=== PATIENT | female | born 1975 | race African-American/Black ===

== ENCOUNTER 2017-07-23 21:05 | Emergency (ER) | payer BC ==
[~2017-07-23] VITALS: Ht 147.3 cm; Wt 117.9 kg
[2017-07-23] MEDS ORDERED: NITROGLYCERIN SUBLINGUAL 0.4 MG BOTTLE OF 25. SL PRN (21:45)
[2017-07-23 21:48] LABS: BASO % 1 % (0-3); EOS % 6 % (0-3); HEMATOCRIT 36.7 % (36.0-47.0); HEMOGLOBIN 11.9 g/dL (12.0-15.5); LYMPH # 2.6 x10^3/uL (1.0-4.8); LYMPH % 44 % (24-48); MEAN CORPUSCULAR HEMOGLOBIN 27 pg (25-35); MEAN CORPUSCULAR HGB CONC 32 g/dL (31-37); MEAN CORPUSCULAR VOLUME 83 fL (79-100); MONO % 7 % (0-9); NEUT % 43 % (31-73); PLATELET COUNT 186 x10^3/uL (140-400); RED BLOOD COUNT 4.44 x10^6/uL (3.50-5.40); RED CELL DISTRIBUTION WIDTH 14.7 % (11.5-14.5)
[2017-07-23 22:02] LABS: CALCIUM 8.9 mg/dL (8.5-10.1); GFR 73.6; POTASSIUM 3.7 mmol/L (3.5-5.1)
[2017-07-23 22:09] LABS: ALBUMIN 3.7 g/dL (3.4-5.0); ALBUMIN/GLOBULIN RATIO 1.2 (1.0-1.7); TOTAL BILIRUBIN 0.3 mg/dL (0.2-1.0); TOTAL PROTEIN 6.8 g/dL (6.4-8.2)
[2017-07-23] MEDS ORDERED: FAMOTIDINE 20 MG/2 ML VIAL IVP ONE (23:45)
[2017-07-24 01:00] VITALS: BP 111/56
--- NOTE | 2017-07-24 04:55 | PHYS DOC ---
Past Medical History Past Medical History: Fibromyalgia, Other Additional Past Medical Histor: gall stones, sjogrens disease, chronic pain, Past Surgical History: , Other Additional Past Surgical Histo: carpal tunnel Alcohol Use: None Drug Use: None Adult General Chief Complaint Chief Complaint: CHEST PAIN HPI HPI Patient is a 42 year old female who presents with left-sided chest wall pain worse with deep breathing and palpation and movement. Symptom onset was yesterday. Patient states she has recurrent chest pain and has had one episodes of costochondritis. 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 Patient denies dyspnea with exertion chest pain with exertion, nausea vomiting sweats. Denies leg pain swelling, no history of DVT or PE. Denies abdominal pain and discomfort. No fever chills, cough palpitations. No other acute symptoms or complaints.[] Review of Systems Review of Systems Review symptoms as per history of present illness. All other review symptoms are negative. All other systems were reviewed and found to be within normal limits, except as documented in this note. Current Medications Current Medications Current Medications Medications (Trade) Dose Ordered Sig/Cyndee Start Time Stop Time Status Last Admin Dose Admin Famotidine (Pepcid Vial) 20 mg 1X ONCE 07/23/17 23:45 07/23/17 23:46 DC 07/23/17 23:45 20 MG Nitroglycerin (Nitrostat) 0.4 mg PRN Q5MIN PRN 07/23/17 21:45 07/24/17 03:02 DC 07/23/17 22:18 0.4 MG Allergies Allergies Allergies Coded Allergies Type Severity Reaction Last Updated Verified Sulfa (Sulfonamide Antibiotics) Allergy Unknown 07/23/17 Yes adalimumab Allergy Unknown 07/23/17 Yes aspirin Allergy Unknown 07/23/17 Yes etanercept Allergy Unknown 07/23/17 Yes infliximab Allergy Unknown 07/23/17 Yes Physical Exam Physical Exam Constitutional: Well developed, well nourished, no acute distress, non-toxic appearance. [] HENT: Normocephalic, atraumatic, bilateral external ears normal, oropharynx moist, no oral exudates, nose normal. [] Eyes: PERRLA, EOMI, conjunctiva normal, no discharge. [] Neck: Normal range of motion, no tenderness, supple, no stridor. [] Cardiovascular:Heart rate regular rhythm, no murmur left-sided reproducible chest wall pain[] Lungs & Thorax: Bilateral breath sounds clear to auscultation [] Abdomen: Bowel sounds normal, soft, no tenderness, no masses, no pulsatile masses. [] Skin: Warm, dry, no erythema, no rash. [] Back: No tenderness, no CVA tenderness. [] Extremities: No tenderness, no cyanosis, no clubbing, ROM intact, no edema. [] Neurologic: Alert and oriented X 3, normal motor function, normal sensory function, no focal deficits noted. [] Psychologic: Affect normal, judgement normal, mood normal. [] Current Patient Data Vital Signs Vital Signs Date Time Temp Pulse Resp B/P (MAP) Pulse Ox O2 Delivery O2 Flow Rate FiO2 07/24/17 01:00 88 20 111/56 (74) 98 07/23/17 22:40 Room Air 07/23/17 21:41 97.9 97.9 Lab Values Laboratory Tests Test 07/23/17 21:30 07/24/17 00:39 White Blood Count 6.0 x10^3/uL (4.0-11.0) Red Blood Count 4.44 x10^6/uL (3.50-5.40) Hemoglobin 11.9 g/dL (12.0-15.5) L Hematocrit 36.7 % (36.0-47.0) Mean Corpuscular Volume 83 fL (79-100) Mean Corpuscular Hemoglobin 27 pg (25-35) Mean Corpuscular Hemoglobin Concent 32 g/dL (31-37) Red Cell Distribution Width 14.7 % (11.5-14.5) H Platelet Count 186 x10^3/uL (140-400) Neutrophils (%) (Auto) 43 % (31-73) Lymphocytes (%) (Auto) 44 % (24-48) Monocytes (%) (Auto) 7 % (0-9) Eosinophils (%) (Auto) 6 % (0-3) H Basophils (%) (Auto) 1 % (0-3) Neutrophils # (Auto) 2.6 x10^3uL (1.8-7.7) Lymphocytes # (Auto) 2.6 x10^3/uL (1.0-4.8) Monocytes # (Auto) 0.4 x10^3/uL (0.0-1.1) Eosinophils # (Auto) 0.4 x10^3/uL (0.0-0.7) Basophils # (Auto) 0.0 x10^3/uL (0.0-0.2) D-Dimer (Anita) < 0.27 ug/mlFEU Sodium Level 138 mmol/L (136-145) Potassium Level 3.7 mmol/L (3.5-5.1) Chloride Level 103 mmol/L (98-107) Carbon Dioxide Level 30 mmol/L (21-32) Anion Gap 5 (6-14) L Blood Urea Nitrogen 9 mg/dL (7-20) Creatinine 1.0 mg/dL (0.6-1.0) Estimated GFR (Cockcroft-Gault) 73.6 BUN/Creatinine Ratio 9 (6-20) Glucose Level 99 mg/dL (70-99) Calcium Level 8.9 mg/dL (8.5-10.1) Total Bilirubin 0.3 mg/dL (0.2-1.0) Aspartate Amino Transferase (AST) 21 U/L (15-37) Alanine Aminotransferase (ALT) 19 U/L (14-59) Alkaline Phosphatase 75 U/L (46-116) Troponin I Quantitative < 0.017 ng/mL (0.000-0.055) XI-Alv-C-Type Natriuretic Peptide 16 pg/mL (0-124) Total Protein 6.8 g/dL (6.4-8.2) Albumin 3.7 g/dL (3.4-5.0) Albumin/Globulin Ratio 1.2 (1.0-1.7) POC Troponin I 0.01 ng/ml (<0.08) Laboratory Tests 07/23/17 21:30 Laboratory Tests 07/23/17 21:30 EKG EKG [EKG: Normal sinus rhythm, no acute ST-T wave changes, QTC normal. Interpretation by ED physician.] Radiology/Procedures Radiology/Procedures [Chest XR: NAD] Course & Med Decision Making Course & Med Decision Making Pertinent Labs and Imaging studies reviewed. (See chart for details) [Pain resolved. Repeat trop negative despite constant chest pain greater than 12 hours, is low risk for coronary disease. Recommend use./Cardiology follow-up. Return precautions reviewed.] Dragon Disclaimer Dragon Disclaimer This electronic medical record was generated, in whole or in part, using a voice recognition dictation system. Departure Departure Impression: Primary Impression: Nonspecific chest pain Disposition: 01 HOME, SELF-CARE Condition: GOOD Patient Instructions: Chest Pain (Nonspecific), [id number] Additional Instructions: You were evaluated in the ED for chest pain. An EKG, chest x-ray and labwork were obtained and are normal. The cause of your chest pain has not been determined. Please go home and rest, avoid strenuous physical activity and heavy lifting. Continue home medications including oxycodone for pain. Please continue Protonix and start Zantac for GI upset. MARCIA MEI DO Jul 24, 2017 04:55
--- NOTE | 2017-07-24 07:52 | RAD ---
Portable chest, 07/23/2017: History: Shortness of breath Comparison is made to a study from 04/07/2011. The heart size and pulmonary vascularity are normal. There is a stable nodule in the left lung base laterally. No acute infiltrates are seen. There is no evidence of pleural fluid or pneumothorax. IMPRESSION: No acute cardiopulmonary abnormality is detected.
== END 2017-07-24 01:35 | disposition home or self-care (01) ==
LOC: ER 21:05
DX: R07.89 Other chest pain (principal); M79.7 Fibromyalgia; G89.29 Other chronic pain; Z88.2 Allergy status to sulfonamides; Z88.6 Allergy status to analgesic agent; Z88.8 Allergy status to other drugs, medicaments and biological substances
CPT/HCPCS: 36415; 71010; 80053; 83880; 84484; 85025; 85379; 96374; 99285; S0028

== ENCOUNTER 2018-03-05 07:12 | Observation (INO) | payer BC ==
[~2018-03-05 07:12] MED LIST: ESTROGENS, CONJ VAGINAL CREAM 30GM TUBE.; LIDOCAINE 1% PF 2 ML VIAL. ID; METHYLENE BLUE 1% 10 ML VIAL.; ONDANSETRON PF 4 MG/2 ML VIAL. IV; PROCHLORPERAZINE 10 MG/2 ML VIAL. IV; fentaNYL PF VIAL 100 MCG/2 ML VIAL IV
[2018-03-05] MEDS ORDERED: LIDOCAINE 2% PF Vial for OR 5 ML VIAL. (07:27)
[2018-03-05] MEDS ORDERED: DEXAMETHASONE SOD PHOS 20 MG/5 ML VIAL. (07:28)
[2018-03-05] MEDS ORDERED: PROPOFOL 20 ML IV (07:28)
[2018-03-05] MEDS ORDERED: ROCURONIUM 50 MG/5 ML VIAL. ×2 (07:28→09:15)
[2018-03-05] MEDS ORDERED: fentaNYL PF VIAL 250 MCG/5 ML VIAL (07:28)
[2018-03-05] MEDS ORDERED: ONDANSETRON PF 4 MG/2 ML VIAL. (07:28)
[2018-03-05] MEDS ORDERED: MIDAZOLAM HCL/PF 2 MG/2 ML VIAL. (07:28)
[2018-03-05] MEDS: IV RINGERS,LACTATED 1000ML 1,000 ML IV (08:09)
[2018-03-05 08:11] LABS: NEG OBC UR NEG; POS OBC UR POS; U PREG PATIENT NEGATIVE (NEG)
[2018-03-05] MEDS ORDERED: HYDROCORTISONE SOD SUCC/PF 100 MG/2 ML VIAL. (08:36)
[2018-03-05] MEDS: ceFAZolin SODIUM 3 GM in IV DEXTROSE 5% 100ML 100 ML IV (08:45)
[2018-03-05] MEDS ORDERED: METHOTREXATE SODIUM 50 MG/2 ML VIAL SQ (09:00)
[2018-03-05] MEDS ORDERED: GLYCOPYRROLATE 1 MG/5 ML VIAL. (09:39)
[2018-03-05] MEDS ORDERED: NEOSTIGMINE METHYLSULFATE 5 MG/5 ML SYRINGE. (09:39)
[2018-03-05] MEDS: BUPIVACAINE-EPI 0.25%-1:200000 50 ML VIAL. (11:49)
[2018-03-05] MEDS ORDERED: NON FORMULARY ITEM (Albuterol Sulfate (Ventolin Hfa Inhaler) 2 PUFF) INH (12:00)
[2018-03-05] MEDS ORDERED: 0.9 % SODIUM CHLORIDE 10 ML DISP.SYRIN. IV (12:15)
[2018-03-05] MEDS ORDERED: MAGNESIUM HYDROXIDE 2,400 MG/30 ML ORAL.SUSP. PO (12:15)
[2018-03-05] MEDS ORDERED: CALCIUM CARBONATE 500 MG TAB.CHEW PO (12:15)
[2018-03-05] MEDS ORDERED: ZOLPIDEM 5 MG TABLET. PO (12:15)
[2018-03-05] MEDS ORDERED: LACTULOSE 20 GM/30 ML SOLUTION. PO (12:15)
[2018-03-05] MEDS ORDERED: diphenhydrAMINE 50 MG/ML VIAL IV (12:15)
[2018-03-05] MEDS ORDERED: diphenhydrAMINE HCL 25 MG CAPSULE PO (12:15)
[2018-03-05] MEDS ORDERED: MORPHINE SULFATE 2 MG/ML DISP.SYRIN. IV (12:15)
[2018-03-05] MEDS ORDERED: ONDANSETRON PF 4 MG/2 ML VIAL. IV (12:15)
[2018-03-05] MEDS ORDERED: NALOXONE 0.4 MG/ML VIAL. IV (12:15)
[2018-03-05] MEDS ORDERED: MAG HYDROX/ALUMINUM HYD/SIMETH 30 ML ORAL.SUSP PO (12:15)
[2018-03-05] MEDS ORDERED: oxyCODONE/APAP 5/325 1 TAB TABLET PO (12:15)
[2018-03-05] MEDS ORDERED: fentaNYL PF VIAL 100 MCG/2 ML VIAL ×3 (12:31→12:59)
[2018-03-05] MEDS: fentaNYL PF VIAL 100 MCG/2 ML VIAL IV ×4 (12:44→13:28)
[2018-03-05] MEDS: MORPHINE SULFATE 2 MG/ML DISP.SYRIN. IV (14:09)
[2018-03-05] MEDS ORDERED: ALBUTEROL SULFATE 2.5 MG/3 ML NEBU. NEB (14:45)
[2018-03-05 18:34] LABS: HEMOGLOBIN 11.5 g/dL (12.0-15.5)
[2018-03-05 18:34] LABS: HEMATOCRIT 35.6 % (36.0-47.0)
[2018-03-05] MEDS: HYDROcodone/APAP 5/325MG 1 TAB TABLET PO (22:43)
[2018-03-05] MEDS: traZODone 100 MG TABLET. PO (22:44)
[2018-03-05] MEDS: CYCLOBENZAPRINE 10 MG TABLET. PO (22:44)
[2018-03-05] MEDS: PREGABALIN 75 MG CAPSULE PO (22:45)
[2018-03-06 04:51] LABS: HEMATOCRIT 28.6 % (36.0-47.0)
[2018-03-06 05:02] LABS: ANION GAP 7 (6-14); BLOOD UREA NITROGEN 8 mg/dL (7-20); CALCIUM 7.9 mg/dL (8.5-10.1); CARBON DIOXIDE 26 mmol/L (21-32); CHLORIDE 108 mmol/L (98-107); CREATININE 0.9 mg/dL (0.6-1.0); GFR 83.1; GLUCOSE 114 mg/dL (70-99); POTASSIUM 3.5 mmol/L (3.5-5.1); SODIUM 141 mmol/L (136-145)
[2018-03-06] MEDS: hydroCHLOROthiazide 25 MG TABLET PO (08:31)
[2018-03-06] MEDS: SIMETHICONE 80 MG TAB.CHEW PO (08:31)
[2018-03-06] MEDS: PANTOPRAZOLE 40 MG TABLET.DR. PO (08:31)
[2018-03-06] MEDS: HYDROcodone/APAP 5/325MG 1 TAB TABLET PO (08:32)
[2018-03-06] MEDS: predniSONE 10 MG TABLET PO (08:33)
[2018-03-06] MEDS: CYCLOBENZAPRINE 10 MG TABLET. PO (08:34)
== END 2018-03-06 12:13 | disposition home or self-care (01) ==
LOC: SURG 07:12 → 3 NORTH 09:00
DX: D25.9 Leiomyoma of uterus, unspecified (principal); D64.9 Anemia, unspecified; K66.0 Peritoneal adhesions (postprocedural) (postinfection); N92.0 Excessive and frequent menstruation with regular cycle
CPT/HCPCS: 36415; 80048; 81025; 85014; 85018; 86850; 86900; 86901; 88307; 96374; A7015; G0378; G0379; J1100; J1720; J2001; J2250; J2270; J2405; J2704; J2710; J3010; J3490; J7030; J7120; J7512; Q9968